=== PATIENT | male | born 1985 | race Caucasian/White ===

== ENCOUNTER 2018-01-22 13:49 | Emergency (ER) | payer SELFPAY ==
--- NOTE | 2018-01-22 14:24 | UC ---
Lower Extremity/Ankle HPI - HPI Summary HPI Summary: left great toe for 4 months---began hurting so bad last night he had to leave work, mt joint swelling - History of Current Complaint Chief Complaint: UCLowerExtremity Stated Complaint: LEFT BIG TOE INJURY Time Seen by Provider: 01/22/18 14:20 Hx Obtained From: Patient Onset/Duration: Gradual Onset, Lasting Weeks - 16, Still Present Severity Initially: Moderate Severity Currently: Moderate Pain Intensity: 4 Pain Scale Used: 0-10 Numeric Aggravating Factor(s): Standing, Ambulation Alleviating Factor(s): Rest, Elevation Able to Bear Weight: Yes - Allergies/Home Medications Allergies/Adverse Reactions: Allergies Allergy/AdvReac Type Severity Reaction Status Date / Time No Known Allergies Allergy Verified 01/22/18 14:03 PMH/Surg Hx/FS Hx/Imm Hx Previously Healthy: Yes - Surgical History Surgical History: Yes Surgery Procedure, Year, and Place: pilonidal cyst ~2002 - Family History Known Family History: Positive: None - Social History Occupation: Employed Full-time Lives: With Family Alcohol Use: Rare Substance Use Type: Marijuana Substance Use Comment - Amount & Last Used: last used today- uses daily Smoking Status (MU): Heavy Every Day Tobacco Smoker Type: Cigarettes Amount Used/How Often: 1 pack daily Have You Smoked in the Last Year: Yes Cessation Counseling: Counseled 3+Min - 10 Min Review of Systems Constitutional: Negative Skin: Negative Eyes: Negative ENT: Negative Respiratory: Negative Cardiovascular: Negative Gastrointestinal: Negative Genitourinary: Negative Motor: Negative Neurovascular: Negative Musculoskeletal: Arthralgia - left great toe and MT joint pain Neurological: Negative Psychological: Negative Is Patient Immunocompromised?: No All Other Systems Reviewed And Are Negative: Yes Physical Exam Triage Information Reviewed: Yes Appearance: Well-Appearing, No Pain Distress, Well-Nourished Vital Signs: Initial Vital Signs Temp 98.8 F 01/22/18 14:07 Pulse 89 01/22/18 14:07 Resp 18 01/22/18 14:07 BP 114/64 01/22/18 14:07 Pulse Ox 100 01/22/18 14:07 Vital Signs Reviewed: Yes Eye Exam: Normal Eyes: Positive: Conjunctiva Clear ENT Exam: Normal ENT: Positive: Normal ENT inspection, Hearing grossly normal. Negative: Trismus , Muffled voice, Hoarse voice, Dental tenderness Dental Exam: Normal Neck exam: Normal Neck: Positive: Supple, Nontender, No Lymphadenopathy Respiratory Exam: Normal Respiratory: Positive: Chest non-tender, Lungs clear, Normal breath sounds, No respiratory distress, No accessory muscle use Cardiovascular Exam: Normal Cardiovascular: Positive: RRR, No Murmur, Pulses Normal, Brisk Capillary Refill Musculoskeletal Exam: Normal Musculoskeletal: Positive: Strength Intact, ROM Intact, Edema @ - left great toe Neurological Exam: Normal Neurological: Positive: Alert, Muscle Tone Normal Psychological Exam: Normal Skin Exam: Normal Diagnostics - Radiology No standard instances Xray Interpretation: Positive (See Comments) - soft tissue swelling Radiology Interpretation Completed By: ED Physician, Radiologist Lower Extremity Course/Dx - Course Course Of Treatment: labs for gout, indocin, post op sure follow with pcp - Differential Dx/Diagnosis Provider Diagnoses: left great toe pain Discharge - Discharge Plan Condition: Stable Disposition: HOME Prescriptions: Indomethacin CAP* [Indocin CAP*] 25 - 50 mg PO TID PRN #40 cap PRN Reason: pain Patient Education Materials: Low Purine Diet (ED), Gout (ED), Arthralgia (ED), Swollen Joint (ED) Forms: *Work Release Referrals: Fidel Pike MD [Medical Doctor] - If Needed
[2018-01-22 15:06] VITALS: BP 114/64
--- NOTE | 2018-01-22 15:55 | RAD ---
INDICATION: Left great toe pain. TECHNIQUE: 3 views of the left great toe were obtained. FINDINGS: There is soft tissue swelling which is most prominent at the metatarsophalangeal joint. The bones are normal alignment. No fracture is seen. No erosive changes are noted. Joint spaces appear relatively maintained. No soft tissue calcifications are seen. IMPRESSION: SOFT TISSUE SWELLING.
[2018-01-22 19:31] LABS: ABS Basophils 0.1 10^3/ul (0-0.2); ABS Eosinophils 0.4 10^3/ul (0-0.6); ABS Lymphocytes 2.2 10^3/ul (1.0-4.8); ABS Monocytes 0.5 10^3/ul (0-0.8); ABS Neutrophils 4.2 10^3/ul (1.5-7.7); ABS Nucleated RBC 0 10^3/ul; Hematocrit 42 % (42-52); Hemoglobin 14.2 g/dl (14.0-18.0); Mean Corpuscular HGB Conc 34 g/dl (31-36); Mean Corpuscular Hemoglobin 31 pg (27-31); Mean Corpuscular Volume 92 fL (80-94); Mean Platelet Volume 9 um3 (7.4-10.4); Nucleated Red Blood Cells % 0.1; Platelet Count 208 10^3/ul (150-450); Red Blood Count 4.63 10^6/ul (4.0-5.4); Red Cell Distribution Width 14 % (10.5-15); White Blood Count 7.4 10^3/ul (3.5-10.8)
[2018-01-22 19:43] LABS: Uric Acid 7.7 mg/dL (4.4-7.6)
--- NOTE | 2018-01-23 07:37 | UC ---
- Progress Note Progress Note: RN to call pt. URic acid 7.7, CRP 8.58. C/w acute inflammation. CRP does not differentiate b/n infectious vs primary inflammation. Recommend schedule f/u with pcp early next week for recheck. Seek medical attention for worse or new problems in the meantime.
== END 2018-01-22 16:26 | disposition home or self-care (01) ==
LOC: UCCORT 13:49
DX: F17.210 Nicotine dependence, cigarettes, uncomplicated (principal); M79.675 Pain in left toe(s); R82.99 Other abnormal findings in urine; R79.82 Elevated C-reactive protein (CRP)
CPT/HCPCS: 36415; 84550; 85025; 86140; 99203; G0463